=== PATIENT | female | born 1965 | race Caucasian/White ===

== ENCOUNTER 2018-05-08 20:52 | Emergency (ER) | payer BC ==
[2018-05-08 21:14] VITALS: BP 126/81; PULSE 105; RESP 16; O2SAT 98
[2018-05-08 21:25] LABS: APPEARANCE,URINE Cloudy; BILIRUBIN,URINE NEGATIVE (NEGATIVE); COLOR,URINE Yellow; GLUCOSE, URINE (UA) 1+ (NEGATIVE); KETONES,URINE NEGATIVE (NEGATIVE); LEUKOCYTE ESTERASE ,URINE 3+ (NEGATIVE); NITRATE,URINE NEGATIVE (NEGATIVE); OCCULT BLOOD,URINE 1+ (NEG-TRACE); UROBILINOGEN,URINE 0.2 (0.2-1.0 EU)
[2018-05-08] MEDS ORDERED: ACETAMINOPHEN 500 MG 500 MG TAB PO ONE (21:37)
[2018-05-08] MEDS ORDERED: ACETAMINOPHEN 500 MG 500 MG TAB ONE (21:38)
[2018-05-08 21:40] LABS: BASOPHILS % (AUTO) 1 % (0-3); EOSINOPHILS % (AUTO) 1 % (0-9); HEMATOCRIT 36 % (35-47); HEMOGLOBIN 11.6 gm/dl (12.0-15.5); MEAN CORPUSCULAR HEMOGLOBIN 27.7 pg (27.0-32.0); MEAN CORPUSCULAR HGB CONC 32.6 gm/dl (32.0-36.0); MEAN CORPUSCULAR VOLUME 85 fL (81-99); MONOCYTES % (AUTO) 7.8 % (0-12); NEUTROPHILS % (AUTO) 85.6 % (37-80)
[2018-05-08 21:50] LABS: LACTIC ACID 2.4 mMol/L (0.0-2.0)
[2018-05-08 22:00] LABS: ALBUMIN 3.2 gm/dl (3.4-5.0); BILIRUBIN,TOTAL 0.7 mg/dl (0.2-1.0); CALCIUM 8.8 mg/dl (8.5-10.1); CARBON DIOXIDE 25.5 mEq/L (21-32); CREATININE 0.86 mg/dl (0.60-1.00); POTASSIUM 4.2 mMol/L (3.5-5.1)
[2018-05-08] MEDS ORDERED: SODIUM CHLORIDE 0.9% 1000ML 1,000 ML IV SCH (22:00)
[2018-05-08] MEDS ORDERED: CEFTRIAXONE 1 GM PDS 1 GM in SODIUM CHLORIDE 0.9% 50 ML 50 ML IV ONE (22:15)
[2018-05-08] MEDS ORDERED: SODIUM CHLORIDE 0.9% FLUSH 10 ML SOL IV PRN (22:15)
[2018-05-08] MEDS ORDERED: CEFTRIAXONE 1 GM PDS ONE (22:17)
[2018-05-08 22:28] VITALS: TEMP 99.4
[2018-05-08 22:29] LABS: BACTERIA 2+ (< 1+); CRYSTALS NEGATIVE (0-3 AVE/HPF); EPITHELIAL CELLS 0-1 (SQUAMOUS); WBC,URINE 15-20 (0-5AV/HPF)
[2018-05-08] MEDS ORDERED: SODIUM CHLORIDE 0.9% 500 ML 500 ML IV ONE (23:20)
== END 2018-05-09 00:22 | disposition home or self-care (01) ==
LOC: ED 20:52
DX: R35.0 Frequency of micturition (principal); N39.0 Urinary tract infection, site not specified; R50.9 Fever, unspecified
CPT/HCPCS: 36415; 80053; 81001; 82962; 85025; 87040; 87077; 87088; 87186; 87205; 96365; 96366; 99282; 99284; J0696